=== PATIENT | male | born 1970 | race Caucasian/White ===

== ENCOUNTER 2025-05-26 10:22 | Emergency (ER) | payer OTHER, SELFPAY ==
--- NOTE | ~2025-05-26 | XR_ITS ---
EXAMINATION: XR hand RT min 3V DATE: 05/26/2025 11:42 INDICATION: Injury to the second distal phalanx TECHNIQUE: Posteroanterior, oblique and lateral views of the right hand were obtained. COMPARISON: None. FINDINGS: Old healed fracture deformity with residual palmar angulation at the fifth metatarsal diaphysis. Bone alignment is otherwise normal. No acute fracture. 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 Deep laceration evident at the radial aspect of the second distal phalanx. No radiopaque foreign bodies. IMPRESSION: 1. Deep laceration at the distal second digit with no radiopaque foreign bodies or acute osseous abno rmality. Reviewed, dictated and finalized at location A. IMPRESSION: 1. Deep laceration at the distal second digit with no radiopaque foreign bodies or acute osseous abnormality.
[2025-05-26 11:15] VITALS: BP 170/116; PULSE 83; RESP 16; TEMP 36.8; O2SAT 99
--- NOTE | 2025-05-26 12:47 | ED.GENADULT ---
HPI - General Adult General Chief complaint: Wound/Laceration Stated complaint: laceration right fingers Time Seen by Provider: 05/26/25 11:20 History of Present Illness HPI narrative: This is a 57 year old male who stuck his hand into a metal fan and sustained an injury to the tip of his 2nd right digit. No other injuries. tetanus up-to-date Related Data Allergies Allergy/AdvReac Type Severity Reaction Status Date / Time No Known Allergies Allergy Verified 05/26/25 11:20 Exam Narrative: APPEARANCE: No apparent distress. Head: atraumatic. EYES: EOMI, NOSE: Atraumatic NECK: Trachea midline RESPIRATORY: No increased rate of breathing CARDIOVASCULAR: RRR, ABDOMINAL: Non-distended MUSCULOSKELETAl: No obvious deformities NEURO: Alert. Moving 4/4 extremities SKIN:: Focal exam of the right 2nd digit revealed 2 parallel lacerations PSYCHIATRIC: Normal affect Course Vital Signs Vital signs: Vital Signs Temperature 98.2 F 05/26/25 11:15 Pulse Rate 83 05/26/25 11:15 Respiratory Rate 16 05/26/25 11:15 Blood Pressure 170/116 H 05/26/25 11:15 Pulse Oximetry 99 05/26/25 11:15 Oxygen Delivery Room Air 05/26/25 11:15 Temperature 98.2 F 05/26/25 11:15 Pulse Rate 83 05/26/25 11:15 Respiratory Rate 16 05/26/25 11:15 Blood Pressure 170/116 H 05/26/25 11:15 Pulse Oximetry 99 05/26/25 11:15 Oxygen Delivery Room Air 05/26/25 11:15 Procedures Laceration Laceration 1: Date: 05/26/25 Side (If applicable): right Size (cm): 2 Description: irregular Depth: involves muscle layer Local Anesthetic: bupivacaine 0.25% Amount of anesthesia used (mL): 7 Pre-repair: wound explored, irrigated extensively, extensive debridement, deep structures intact and wound margins revised ====== Skin Level ====== Skin layer closed with: nylon Size (cm): 5-0 Number of sutures: 6 Technique: simple, interrupted ====== Subcutaneous Layer ====== ====== Muscle Layer ====== ====== Tendon Layer ====== Medical Decision Making MDM Narrative Medical decision making narrative: -Course: 54-year-old male presenting with a complicated laceration to the tip of his 5th digit after sticking into a fan. X-ray negative for bony injury. Wound was irregular jagged with avulsion of part of the nail and finger. Wound was closed as best as possible concerning extent of his injury. He is given 1 g of IM Ancef discharged on Keflex. Given follow-up with Hand surgery. Given return precautions for infection. Vital Signs Vital Signs: Vital Signs Temperature 98.2 F 05/26/25 11:15 Pulse Rate 83 05/26/25 11:15 Respiratory Rate 16 05/26/25 11:15 Blood Pressure 170/116 H 05/26/25 11:15 Pulse Oximetry 99 05/26/25 11:15 Oxygen Delivery Room Air 05/26/25 11:15 Temperature 98.2 F 05/26/25 11:15 Pulse Rate 83 05/26/25 11:15 Respiratory Rate 16 05/26/25 11:15 Blood Pressure 170/116 H 05/26/25 11:15 Pulse Oximetry 99 05/26/25 11:15 Oxygen Delivery Room Air 05/26/25 11:15 Discharge Plan Discharge Clinical Impression: Laceration Patient Disposition: Home Condition: Stable Instructions: Antibiotic Form, Care For Your Stitches (ED) Additional Instructions: You were seen after a finger injury. Your wound was repaired as best as possible considering the extent of the injury. It is possible he will developing nail deformity. Please follow-up with the hand surgeon listed below in 10 days for suture removal. If you develop signs of infection please return to ED for re-evaluation. Patient Language: Mexican Prescriptions: New cephalexin 500 mg capsule 500 mg PO Q12H Qty: 14 0RF Follow-up/Referrals: Thalia Fatima MD [Physician] - 2 Weeks (Fan injury to 2nd digit) PHYSICIAN NOT ON STAFF,NONSTAFF [Primary Care Provider] -
[2025-05-26] MEDS: ceFAZolin SODIUM 1 GM VIAL IM (13:18)
[2025-05-26] MEDS: WATER, STERILE FOR INJECTION 10 ML VIAL XX (13:18)
[2025-05-26 13:28] VITALS: BP 156/99; PULSE 71; RESP 16; TEMP 36.4; O2SAT 97
== END 2025-05-26 13:30 | disposition home or self-care (01) ==
PROVIDERS: Emergency Provider Emergency Medicine
DX: S61.310A Laceration without foreign body of right index finger with damage to nail, initial encounter (principal); W45.8XXA Other foreign body or object entering through skin, initial encounter
CPT/HCPCS: 12001; 73130; 99283; J0690